=== PATIENT | female | born 1995 | race Caucasian/White ===

== ENCOUNTER 2022-09-29 21:56 | Emergency (ER) | payer MEDICAID ==
[~2022-09-29] VITALS: Ht 162.6 cm; Wt 75.1 kg
[~2022-09-29 21:56] MED LIST: AMOX-494 MT; IBUP-2029 MT; OFLO5DRO4 RIGHT EAR; T3 PO
[2022-09-29 22:05] VITALS: BP 105/77; O2SAT 98
[2022-09-30] MEDS ORDERED: TETRACAINE 0.5% OPHTH DROPS 4ML BOTHEYE ONE
[2022-09-30] MEDS ORDERED: FLUORESCEIN SODIUM 1MG/STRIP BOTHEYE ONE
[2022-09-30] MEDS: FLUORESCEIN SODIUM 1MG/STRIP BOTHEYE NR ×2 (00:42→01:18)
[2022-09-30] MEDS: TETRACAINE 0.5% OPHTH DROPS 4ML BOTHEYE NR ×2 (00:42→01:19)
[2022-09-30] MEDS ORDERED: OFLO5DRO EACHEYE (00:51)
[2022-09-30] MEDS: CETIRIZINE 10MG TABLET PO SCH ×2 (01:18→01:19)
[2022-09-30 01:20] VITALS: PULSE 74; RESP 18; TEMP 99.3
== END 2022-09-30 01:21 | disposition home or self-care (01) ==
LOC: ER 21:56
DX: H10.9 Unspecified conjunctivitis (principal)
CPT/HCPCS: 99283